=== PATIENT | female | born 1965 | race Caucasian/White ===

== ENCOUNTER 2017-07-03 01:18 | Emergency (ER) | payer OTHER ==
[2017-07-03] MEDS ORDERED: CLINDAMYCIN 600MG/4ML VIAL 600 MG in 0.9 % SODIUM CHLORIDE 100ML 100 ML IV ONE (01:40)
[2017-07-03] MEDS ORDERED: HYDROMORPHONE HCL 1MG/ML **SYRINGE IVP ONE ×2 (01:40→02:37)
[2017-07-03] MEDS ORDERED: PROMETHAZINE HCL 12.5 MG in 0.9 % SODIUM CHLORIDE 100ML 100 ML IVPB ONE (01:40)
--- NOTE | 2017-07-03 01:45 | Emergency Department Record ---
History of Present Illness - General Chief complaint: Pain Stated complaint: "MY PAIN IS AT A 10, I HAVE SHINGLES Time Seen by Provider: 07/03/17 01:22 Source: Patient Mode of Arrival: Ambulatory Limitations: No limitations - History of Present Illness Initial comments: pt has pain behind the ear which is getting worse and spreading Complaint: Other Onset/Timin -: Days(s) Location: Left History of Same: No Radiation: None Severity scale (1-10): 10 Quality: Burning Consistency: Constant Improves with: Nothing Worsens with: Palpation, Rest Associated Symptoms: Denies other symptoms - Related Data Home Medications Medication Instructions Recorded Confirmed Last Taken Melatonin/Pyridoxine [Melatonin 5 2 each PO QHS 07/03/17 07/03/17 07/02/17 mg Tablet] [place]'s Wort 300 mg PO DAILY 07/03/17 07/03/17 07/02/17 Previous Rx's Medication Instructions Recorded Clindamycin HCl 300 mg PO Q6HR #30 capsule 07/03/17 Clindamycin HCl [Cleocin HCl] 150 mg PO Q6H #30 cap 07/03/17 Hydrocodone/Acetaminophen [[place] 1 tab PO Q6H PRN #10 tab 07/03/17 5mg/325mg] Allergies Allergy/AdvReac Type Severity Reaction Status Date / Time No Known Drug Allergies Allergy Verified 07/03/17 01:22 Travel Screening - Travel/Exposure Within Last 30 Days Have you traveled within the last 30 days?: No - Travel/Exposure Within Last Year Have you traveled outside the [place] in the last year?: No - Additonal Travel Details Have you been exposed to anyone with a communicable illness?: No - Travel Symptoms Symptom Screening: None Past Medical History - SOCIAL HISTORY Smoking Status: Never smoker Alcohol Use: Occasional Drug Use: None - RESPIRATORY Hx Respiratory Disorders: No - CARDIOVASCULAR Hx Cardio Disorders: Yes Hx Hypertension: Yes Comment:: murmur - NEURO Hx Neuro Disorders: Yes Hx Headaches: Yes (migraines) Hx Neuropathy: Yes (feet) - GI Hx GI Disorders: No - Hx Genitourinary Disorders: No - ENDOCRINE Hx Endocrine Disorders: Yes Hx Diabetes: Yes Hx Thyroid Disease: Yes - MUSCULOSKELETAL Hx Musculoskeletal Disorders: Yes Hx Arthritis: Yes - PSYCH Hx Psych Problems: Yes Hx Depression: Yes - HEMATOLOGY/ONCOLOGY Hx Hematology/Oncology Disorders: Yes Comment:: mennoregia Family Medical History Any Significant Family History?: No Physical Exam - General General Appearance: Alert, Oriented x3, Cooperative, Mild distress - Head Head exam: Normal inspection Head exam detail: General tenderness (behind l ear) - Eye Eye exam: Normal appearance, PERRL, EOMI Pupils: Normal accommodation - ENT ENT exam: Normal exam, Mucous membranes moist, Normal external ear exam, Normal orophraynx, TM's normal bilaterally Ear exam: Normal external inspection, External canal tenderness Nasal Exam: Normal inspection. negative: Discharge, Sinus tenderness Mouth exam: Normal external inspection, Tongue normal Teeth exam: Normal inspection. negative: Dental caries Throat exam: Normal inspection. negative: Tonsillar erythema, Tonsillar exudate - Neck Neck exam: Normal inspection, Full ROM, Tenderness - Respiratory Respiratory exam: Normal lung sounds bilaterally. negative: Respiratory distress - Cardiovascular Cardiovascular Exam: Regular rate, Normal rhythm, Normal heart sounds - GI/Abdominal GI/Abdominal exam: Soft, Normal bowel sounds. negative: Tenderness - Rectal Rectal exam: Deferred - exam: Deferred - Extremities Extremities exam: Normal inspection, Full ROM, Normal capillary refill. negative: Tenderness - Back Back exam: Reports: Normal inspection, Full ROM. Denies: Muscle spasm, Rash noted, Tenderness - Neurological Neurological exam: Alert, CN II-XII intact, Normal gait, Oriented X3 - Psychiatric Psychiatric exam: Normal affect, Normal mood - Skin Skin exam: Dry, Intact, Normal color, Warm Course Vital Signs 07/03/17 01:26 Temperature 98.6 F Pulse Rate [ 95 H Pulse Ox Probe] Respiratory 20 Rate Blood Pressure 159/74 [Left Arm] Pulse Ox 96 Medical Decision Making - Lab Data Result diagrams: 07/03/17 01:45 07/03/17 01:45 Disposition Disposition: Discharge Clinical Impression: Cellulitis Qualifiers: Site of cellulitis: head Qualified Code(s): L03.811 - Cellulitis of head [any part, except face] Disposition: Home, Self-Care Condition: (1) Good Instructions: Cellulitis (ED) Additional Instructions: follow up with family doctor this week. return sooner if worse. moist heat. monitor blood sugars closely Prescriptions: Clindamycin HCl 300 mg PO Q6HR #30 capsule Clindamycin HCl [Cleocin HCl] 150 mg PO Q6H #30 cap Hydrocodone/Acetaminophen [[place] 5mg/325mg] 1 tab PO Q6H PRN #10 tab PRN Reason: Pain - General Forms: Patient Portal Access Quality - Quality Measures Quality Measures: N/A - Blood Pressure Screening Does Patient Have Any of the Following: No Blood Pressure Classification: Hypertensive Reading Systolic Measurement: 159 Diastolic Measurement: 74 Screening for High Blood Pressure: < First Hypertensive BP, F/U Documented > [ [id number]] First Hypertensive Follow-up Interventions: Follow-up with rescreen GT 1 day and LT 4 weeks.
[2017-07-03 01:53] LABS: BASO % 0.2 % (0-6); EOS % 1.3 % (0-6); GRAN % 60.7 % (47-80); HEMATOCRIT 43.3 % (35.0-47.0); HEMOGLOBIN 15.3 gm/dl (11.6-16.0); LYMPH % 29.2 % (16-45); MEAN CELL VOLUME 81.4 fl (81-97); MEAN CORPUSCULAR HEMOGLOBIN 28.8 pg (27-33); MEAN CORPUSCULAR HGB CONC 35.3 g/dl (32-36); MEAN PLATELET VOLUME 10.3 fl (7.4-10.4); MONO % 8.6 % (0-9); PLATELET COUNT 258 K/uL (130-400); RED BLOOD COUNT 5.32 M/uL (3.80-5.40); RED CELL DISTRIBUTION WIDTH 12.5 % (11.5-14.5); WHITE BLOOD COUNT W/O DIFF 9.7 K/uL (4.2-12.2)
[2017-07-03 02:03] LABS: ANION GAP 16.1 (7-16); BLOOD UREA NITROGEN 11 mg/dL (7-17); CARBON DIOXIDE 20.9 mmol/L (22-30); CREATININE 0.5 mg/dL (0.52-1.04); EST GLOMERULAR FILTRATION RATE > 60 ml/min; GLUCOSE,RANDOM 296 mg/dL (70-110)
--- NOTE | 2017-07-03 13:34 | CT SCAN REPORT ---
EXAM: EMERGENCY HEAD CT WITHOUT CONTRAST HISTORY: SMALL LESION BEHIND LEFT EAR GETTING LARGER AND PAINFUL. TECHNIQUE: Axial CT scan of the head was performed without IV contrast. A preliminary report was provided by [facility]. Comparison: None. FINDINGS: No definite acute intracranial hemorrhage identified. No focal mass effect or midline shift apparent. No definite acute infarct or intracranial mass lesion is seen. There is some soft tissue stranding in the subcutaneous adipose tissues along the left side of the upper neck just posterior to the ear and lateral to the mastoid which may represent some cellulitis. There is a small rounded soft tissue density in this region approximately 8 mm in diameter which is nonspecific although could be a small lymph node or abscess. Correlation with physical exam suggested. The paranasal sinuses and mastoids themselves appear clear as do the middle ears. There is also asymmetry in the scalp musculature superior to the level of the ears, being thicker on the left overlying the left parietal bone which may be some inflammatory response as well and correlation with physical exam suggested. IMPRESSION: 1. NO ACUTE INTRACRANIAL HEMORRHAGE OR FOCAL MASS EFFECT EVIDENT. 2. THERE IS SOME SOFT TISSUE STRANDING IN THE SUBCUTANEOUS TISSUES POSTERIOR TO THE LEFT EAR WITH A SMALL ROUNDED SOFT TISSUE DENSITY IN THIS LOCATION, NONSPECIFIC ALTHOUGH MAY REPRESENT A MILDLY PROMINENT LYMPH NODE OR SMALL ABSCESS. THERE ALSO APPEARS TO BE SOME THICKENING OF THE SCALP MUSCULATURE ON THE LEFT COMPARED TO THE RIGHT SUPERIOR TO THE LEVEL OF THE LEFT EAR OVERLYING THE LEFT PARIETAL REGION WHICH MAY ALSO BE SOME INFLAMMATORY RESPONSE AND CORRELATION WITH PHYSICAL EXAM SUGGESTED. 3. SCALP FINDINGS ON THE LEFT WERE DISCUSSED BY MYSELF WITH DR. ESTRADA OF THE EMERGENCY DEPARTMENT AT [facility] [phone] AT THE TIME OF DICTATION AT APPROXIMATELY 8:55 A.M. ON 07/03/17. JOB NUMBER: [id number] AND [id number] [facility]
== END 2017-07-03 03:07 | disposition home or self-care (01) ==
LOC: ER 01:18
DX: L03.811 Cellulitis of head [any part, except face] (principal)
CPT/HCPCS: 99284 ×2; 96376; 96374; 96375; 85025; 80048; 70450; J1170; J2550